=== PATIENT | male | born 1970 | race Two or more races ===

== ENCOUNTER 2017-03-06 20:56 | Emergency (ER) | payer SELFPAY ==
--- NOTE | ~2017-03-06 | CR116 ---
[facility]. [facility] A Service of [facility] RADIOLOGY TEXT RESULTS PATIENT: VIVI URBINA LOCATION: SED : 68 UNIT #: [id number] AGE: [address]: LORRAINE GOOD SEX: M ORDER DR: [id number] [place] [id number] MR#: [id number] Acc #: [id number] NAME: VIVI URBINA : 1970 SEX: M STUDY DATE/TIME: 03/06/2017 22:00 UNIT: SED ROOM: STUDY DESCRIPTION: CR Finger 2 View Thumb Lt Attending Physician: Lorraine Good Aprn Ordering Physician: Lorraine Good Aprn MEDICAL IMAGING REPORT This report is preliminary unless electronic signature is present. EXAM Left first digit series. INDICATION Left thumb laceration at work today. PROCEDURE Three views of the left thumb. COMPARISON None FINDINGS There is a longitudinal comminuted fracture involving the proximal phalanx with extension to involve the articular surface at the distal interphalangeal joint and proximal interphalangeal joint. There is no significant displacement. No radiodense foreign body. IMPRESSION 1. No radiodense foreign body. 2. Comminuted longitudinal fracture of the proximal phalanx of the thumb, involving the articular surfaces of the proximal and distal interphalangeal joints. There is no displacement. Dictated by... William Scott M.D. THIS IS AN ELECTRONICALLY VERIFIED REPORT William Scott M.D. at 03/09/2017 10:01 PM EED/tmw [facility]. [facility] A Service of [facility] RADIOLOGY TEXT RESULTS PATIENT: VIVI URBINA LOCATION: SED : [birth year] UNIT #: [id number] AGE: [address]: LORRAINE GOOD SEX: M ORDER DR: TD: 03/07/2017 03:40 JOB #: [id number] MEDICAL IMAGING REPORT Page 1 of 1
== END 2017-03-06 23:35 ==
LOC: SED 20:56
DX: S62.512A Displaced fracture of proximal phalanx of left thumb, initial encounter for closed fracture (principal); Z23 Encounter for immunization; W29.8XXA Contact with other powered hand tools and household machinery, initial encounter
CPT/HCPCS: 73140; 90471; 90715; 99284